=== PATIENT | female | born 2000 | race Hispanic/Latino ===

== ENCOUNTER 2019-05-19 13:44 | Emergency (ER) | payer MEDICARE ==
[~2019-05-19] VITALS: Ht 160 cm; Wt 103.4 kg
--- OUTSIDE RECORDS SUMMARY | 2019-05-19 13:47 | XMS REPORT ---
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 Allergies, Adverse Reactions, Alerts Allergy Name Allergy Type Status Severity Reaction(s) Onset Date Inactive Date Treating Clinician Comments No Known Allergies DA Active U 2017-12-10 00:00:00 Medications This patient has no known medications. Results Test Description Test Time Test Comments Text Results Atomic Results Result Comments - US PREG UT TRANSVAGINAL 2019-05-19 02:13:00 Name: SILVNIO GUTIERRES [facility] : 2000 Age/S: 18 / F [address] [facility] Unit #: [id number] Loc: [place] [address] Phys: Renay El MD Acct: [id number] Dis Date: Status: REG ER PHONE #: [phone] Exam Date: 05/19/2019 0159 FAX #: [phone] Reason: spotting EXAMS: CPT CODE: [id number] US PREG UT TRANSVAGINAL 68540 EXAM: - US PREG 1ST TRIMTR, - US PREG UT TRANSVAGINAL, - DUP AB/PEL/SC COMP HISTORY: Spotting. COMPARISON: May 03, 2019. TECHNIQUE: Transabdominal and endovaginal scans were performed. Spectral Doppler and color Doppler sonographic analysis of the adnexa was performed. FINDINGS: The uterus is normal size, measuring 8.8 x 5.7 x 6cm (length x AP x transverse dimensions). Single intrauterine gestation is present. heart tones are not present. IMPRESSION: heart tones are not identified during this exam. at 0213 Reported and signed by: Lance Muniz MD CC: Leeroy Thomas MD Technologist: Ronit Valle Trnscb Date/Time: 05/19/2019 (212) [email or web address] Orig Print D/T: S: 05/19/2019 (215) Probe: [id number] PAGE 1 Signed Report - DUP AB/PEL/SC COMP 2019-05-19 02:13:00 Name: SILVINO GUTIERRES [facility] : 2000 Age/S: 18 / F [address] [facility] Unit #: [id number] Loc: [place] [address] Phys: Renay El MD Acct: [id number] Dis Date: Status: REG ER PHONE #: [phone] Exam Date: 05/19/2019 0159 FAX #: [phone] Reason: VB AND EXAMS: CPT CODE: [id number] DUP AB/PEL/SC COMP 39353 EXAM: - US PREG 1ST TRIMTR, - US PREG UT TRANSVAGINAL, - DUP AB/PEL/SC COMP HISTORY: Spotting. COMPARISON: May 03, 2019. TECHNIQUE: Transabdominal and endovaginal scans were performed. Spectral Doppler and color Doppler sonographic analysis of the adnexa was performed. FINDINGS: The uterus is normal size, measuring 8.8 x 5.7 x 6cm (length x AP x transverse dimensions). Single intrauterine gestation is present. heart tones are not present. IMPRESSION: heart tones are not identified during this exam. at 0213 Reported and signed by: Lance Muniz MD CC: Leeroy Thomas MD Technologist: Ronit Valle Trnscb Date/Time: 05/19/2019 (0213) [email or web address] Orig Print D/T: S: 05/19/2019 (021) Probe: PAGE 1 Signed Report - US PREG 1ST TRIMTR 2019-05-19 02:13:00 Name: SILVINO GUTIERRES [facility] : 2000 Age/S: 18 / F [address] [facility] Unit #: [id number] Loc: [place] [address] Phys: Renay El MD Acct: [id number] Dis Date: Status: REG ER PHONE #: [phone] Exam Date: 05/19/2019 0159 FAX #: [phone] Reason: VB AND EXAMS: CPT CODE: [id number] US PREG 1ST TRIMTR 95365 EXAM: - US PREG 1ST TRIMTR, - US PREG UT TRANSVAGINAL, - DUP AB/PEL/SC COMP HISTORY: Spotting. COMPARISON: May 03, 2019. TECHNIQUE: Transabdominal and endovaginal scans were performed. Spectral Doppler and color Doppler sonographic analysis of the adnexa was performed. FINDINGS: The uterus is normal size, measuring 8.8 x 5.7 x 6cm (length x AP x transverse dimensions). Single intrauterine gestation is present. heart tones are not present. IMPRESSION: heart tones are not identified during this exam. at 0213 Reported and signed by: Lance Muniz MD CC: Leeroy Thomas MD Technologist: Ronit Valle Trnscb Date/Time: 05/19/2019 (212) [email or web address] Orig Print D/T: S: 05/19/2019 (021) Probe: PAGE 1 Signed Report BASIC METABOLIC PANEL 2019-05-19 01:06:00 SODIUM (test code=NA) 138 mmol/L 136-145 POTASSIUM (test code=K) 3.8 mmol/L 3.5-5.1 CHLORIDE (test code=CL) 102 mmol/L 101-109 CARBON DIOXIDE (test code=CO2) 25.8 mmol/L 21-32 ANION GAP (test code=GAP) 14 mmol/L 10-20 GLUCOSE (test code=GLU) 137 mg/dL 74-106 BLOOD UREA NITROGEN (test code=BUN) 7 mg/dL 3-21 GLOMERULAR FILTRATION RATE (test code=GFR) > 60 mL/min >=60 Estimated GFR by using Modified MDRD formula.Chronic kidney disease is defined as either kidney damageor GFR <60 mL/min/1.73 m2 for >3 months. CREATININE (test code=CREAT) 0.58 mg/dL 0.55-1.3 BUN/CREATININE RATIO (test code=BUN/CREA) 12.1 10-20 CALCIUM (test code=CA) 8.6 mg/dL 8.4-10.2 HCG SERUM [id number] 01:06:00* Test Item Value Reference Range Comments HCG SERUM BETA (test code=HCG) 98099.0 mIU/ml 0-5.0 INTERPRETATION:B-HCG LEVELS <6 SHOULD BE CONSIDERED "NEGATIVE."VALUES BETWEEN 6-25 MIU/ML NEED TO BE RETESTED WITHIN 48hrs. 0-1 WEEKS AFTER CONCEPTION 0-50 MIU/ML1-2 WEEKS AFTER CONCEPTION 40-300 MIU/ML2-3 WEEKS AFTER CONCEPTION 100-1,000 MIU/ML3-4 WEEKS AFTER CONCEPTION 500-6,000 MIU/ML1-2 MONTHS AFTER CONCEPTION 5,000-200,000 MIU/ML2-3 MONTHS AFTER CONCEPTION 10,000-100,000 MIU/ML2ND TRIMESTER 3,000-50,000 MIU/ML3RD TRIMESTER 1,000-50,000 MIU/ML BASIC METABOLIC [id number] 00:46:00* Test Item Value Reference Range Comments SODIUM (test code=NA) 138 mmol/L 136-145 POTASSIUM (test code=K) 3.8 mmol/L 3.5-5.1 CHLORIDE (test code=CL) 102 mmol/L 101-109 CARBON DIOXIDE (test code=CO2) 25.8 mmol/L 21-32 ANION GAP (test code=GAP) 14 mmol/L 10-20 GLUCOSE (test code=GLU) 137 mg/dL 74-106 BLOOD UREA NITROGEN (test code=BUN) 7 mg/dL 3-21 GLOMERULAR FILTRATION RATE (test code=GFR) > 60 mL/min >=60 Estimated GFR by using Modified MDRD formula.Chronic kidney disease is defined as either kidney damageor GFR <60 mL/min/1.73 m2 for >3 months. CREATININE (test code=CREAT) 0.58 mg/dL 0.55-1.3 BUN/CREATININE RATIO (test code=BUN/CREA) 12.1 10-20 CALCIUM (test code=CA) 8.6 mg/dL 8.4-10.2 HCG SERUM [id number] 00:46:00* Test Item Value Reference Range Comments HCG SERUM BETA (test code=HCG) mIU/mL <10 URINALYSIS [id number] 00:38:00* Test Item Value Reference Range Comments UA COLOR (test code=COLU) YELLOW YELLOW UA APPEARANCE (test code=APPU) CLEAR CLEAR UA GLUCOSE DIPSTICK (test code=DGLUU) norm mg/dL NEGATIVE UA BILIRUBIN DIPSTICK (test code=BILU) NEGATIVE mg/dL NEGATIVE UA KETONE DIPSTICK (test code=KETU) neg mg/dL NEGATIVE UA SPECIFIC GRAVITY (test code=SGU) 1.010 1.001-1.035 UA BLOOD DIPSTICK (test code=YUNI) neg Raghu/uL NEGATIVE UA PH DIPSTICK (test code=RYAN) 7.0 5.0-8.0 UA PROTEIN DIPSTICK (test code=PROU) neg mg/dL Neg-15 UA UROBILINIOGEN DIPSTICK (test code=URO) norm mg/dL 0.0-0.2 UA NITRITE DIPSTICK (test code=CINTIA) NEGATIVE NEGATIVE UA LEUKOCYTE ESTERASE DIPSTICK (test code=LEUU) neg uL NEGATIVE UA WBC (test code=WBCU) 0-5 per HPF 0-5 UA RBC (test code=RBCU) 0-3 per HPF 0-5 UA EPITHELIAL CELLS (test code=EPIU) Rare (0-1/hpf) per HPF Few UA BACTERIA (test code=BACU) TRACE per HPF NONE Urine Source? Clean CatchURINALYSIS [id number] 00:30:00* Test Item Value Reference Range Comments UA COLOR (test code=COLU) YELLOW YELLOW UA APPEARANCE (test code=APPU) CLEAR CLEAR UA GLUCOSE DIPSTICK (test code=DGLUU) norm mg/dL NEGATIVE UA BILIRUBIN DIPSTICK (test code=BILU) NEGATIVE mg/dL NEGATIVE UA KETONE DIPSTICK (test code=KETU) neg mg/dL NEGATIVE UA SPECIFIC GRAVITY (test code=SGU) 1.010 1.001-1.035 UA BLOOD DIPSTICK (test code=YUNI) neg Raghu/uL NEGATIVE UA PH DIPSTICK (test code=RYAN) 7.0 5.0-8.0 UA PROTEIN DIPSTICK (test code=PROU) neg mg/dL Neg-15 UA UROBILINIOGEN DIPSTICK (test code=URO) norm mg/dL 0.0-0.2 UA NITRITE DIPSTICK (test code=CINTIA) NEGATIVE NEGATIVE UA LEUKOCYTE ESTERASE DIPSTICK (test code=LEUU) neg uL NEGATIVE UA WBC (test code=WBCU) per HPF 0-5 UA RBC (test code=RBCU) per HPF 0-5 UA EPITHELIAL CELLS (test code=EPIU) per HPF Few UA BACTERIA (test code=BACU) per HPF NONE Urine Source? Clean CatchCBC W/AUTO [id number] 00:29:00* Test Item Value Reference Range Comments WHITE BLOOD CELL (test code=WBC) 11.6 K/mm3 4.5-12.5 RED BLOOD CELL (test code=RBC) 4.83 mill/mm3 3.7-5.2 HEMOGLOBIN (test code=HGB) 13.4 gram/dL 11.5-15.5 HEMATOCRIT (test code=HCT) 41.6 % 36.0-46.0 MEAN CELL VOLUME (test code=MCV) 86.1 fL 80-98 MEAN CELL HGB (test code=MCH) 27.7 picogram 27.0-33.0 MEAN CELL HGB CONCETRATION (test code=MCHC) 32.2 gram/dL 33.0-36.0 RED CELL DISTRIBUTION WIDTH (test code=RDW) 12.7 % 11.6-16.2 RED CELL DISTRIBUTION WIDTH SD (test code=RDW-SD) 40.4 fL 37.0-51.0 PLATELET COUNT (test code=PLT) 394 K/mm3 150-450 MEAN PLATELET VOLUME (test code=MPV) 10.1 fL 6.7-11.0 NEUTROPHIL % (test code=NT%) 53.9 % 39.0-69.0 LYMPHOCYTE % (test code=LY%) 35.8 % 25.0-55.0 MONOCYTE % (test code=MO%) 6.3 % 0.0-10.0 EOSINOPHIL % (test code=EO%) 3.2 % 0.0-5.0 BASOPHIL % (test code=BA%) 0.5 % 0.0-1.0 NEUTROPHIL # (test code=NT#) 6.26 K/mm3 1.8-7.7 LYMPHOCYTE # (test code=LY#) 4.16 K/mm3 1.0-5.0 MONOCYTE # (test code=MO#) 0.73 K/mm3 0-0.8 EOSINOPHIL # (test code=EO#) 0.37 K/mm3 0.0-0.5 BASOPHIL # (test code=BA#) 0.06 K/mm3 0.0-0.2 MANUAL DIFF REQUIRED (test code=MDIFF) NO URINALYSIS [id number] 22:58:00* Test Item Value Reference Range Comments UA COLOR (test code=COLU) YELLOW YELLOW UA APPEARANCE (test code=APPU) TURBID CLEAR UA GLUCOSE DIPSTICK (test code=DGLUU) NEGATIVE mg/dL NEGATIVE UA BILIRUBIN DIPSTICK (test code=BILU) NEGATIVE mg/dL NEGATIVE UA KETONE DIPSTICK (test code=KETU) NEGATIVE mg/dL NEGATIVE UA SPECIFIC GRAVITY (test code=SGU) 1.022 1.001-1.035 UA BLOOD DIPSTICK (test code=YUNI) 1.0 mg/dL (3+) mg/dL NEGATIVE UA PH DIPSTICK (test code=RYAN) 7.0 5.0-8.0 UA PROTEIN DIPSTICK (test code=PROU) 50 (1+) mg/dL NEGATIVE UA UROBILINIOGEN DIPSTICK (test code=URO) Normal mg/dL NEGATIVE UA NITRITE DIPSTICK (test code=CINTIA) NEGATIVE NEGATIVE UA LEUKOCYTE ESTERASE W REFLEX (test code=LEUUR) 25 Darion/uL (Trace) Darion/uL NEGATIVE UA WBC (test code=WBCU) 6-10 per HPF 0-5 UA RBC (test code=RBCU) 11-20 #/HPF 0-5 UA EPITHELIAL CELLS (test code=EPIU) MANY per HPF FEW UA BACTERIA (test code=BACU) FEW #/HPF NONE UA MUCUS (test code=MUCU) FEW #/LPF FEW UA AMORPHOUS SEDIMENT (test code=AMORU) FEW #/LPF NONE Urine Source? Clean CatchURINALYSIS [id number] 22:44:00* Test Item Value Reference Range Comments UA COLOR (test code=COLU) YELLOW YELLOW UA APPEARANCE (test code=APPU) TURBID CLEAR UA GLUCOSE DIPSTICK (test code=DGLUU) NEGATIVE mg/dL NEGATIVE UA BILIRUBIN DIPSTICK (test code=BILU) NEGATIVE mg/dL NEGATIVE UA KETONE DIPSTICK (test code=KETU) NEGATIVE mg/dL NEGATIVE UA SPECIFIC GRAVITY (test code=SGU) 1.022 1.001-1.035 UA BLOOD DIPSTICK (test code=YUNI) 1.0 mg/dL (3+) mg/dL NEGATIVE UA PH DIPSTICK (test code=RYAN) 7.0 5.0-8.0 UA PROTEIN DIPSTICK (test code=PROU) 50 (1+) mg/dL NEGATIVE UA UROBILINIOGEN DIPSTICK (test code=URO) Normal mg/dL NEGATIVE UA NITRITE DIPSTICK (test code=CINTIA) NEGATIVE NEGATIVE UA LEUKOCYTE ESTERASE W REFLEX (test code=LEUUR) 25 Darion/uL (Trace) Darion/uL NEGATIVE UA WBC (test code=WBCU) per HPF 0-5 UA RBC (test code=RBCU) per HPF 0-5 UA EPITHELIAL CELLS (test code=EPIU) per HPF Few UA BACTERIA (test code=BACU) per HPF NONE Urine Source? Clean Catch- US RETRO [id number] 22:12:00 Name: SILVINO GUTIERRES [facility] : 2000 Age/S: 18 / F [address] [facility] Unit #: [id number] Loc: [place] [address] Phys: White,Will naet D SOFTWARE APPLICATIONS DESIGNER Acct: [id number] Di s Date: Status: REG ER PHONE #: [phone] Exam Date: 05/03/20192108 FAX #: Reason: FLANK PAIN EXAMS: CPT CODE: [id number] US RETRO LTD 15412 HISTORY: Flank pain. COMPARISON: None available. Bilateral renal ultrasound: Both kidneys are free from hydronephrosis and calyceal stones. Normal echogenicity and texture. No perinephric collections. Right kidney measured 10.1 x 4.5 x 4.4 cm. Left kidney measured 11.5 x 6.4 x 4.8 cm. Unremarkable incompletely distended urinary bladder. No wall thickening or mural nodules. Ureteral jets are not documented. IMPRESSION: No hydronephrosis or calyceal stones. Normal echogenicity and texture. Unremarkable incompletely distended urinary bladder. Electronically Signed by Je Bowens on 12/2018 at 2212 Reported and signed by: Derian Quevedo CC: Dave Garcia MD; Leeroy Thomas MD; Lucio Gallegos NP Technologist: Vinita Valadez RDMS Trnscb Da te/Time: 05/03/2019 (2211) [email or web address] Orig Print D/T: S: 0 05/03/2019 (2214) Probe: PAGE 1 Signed Report - DUP AB/PEL/SC [id number] 22:05:00 Name: SILVINO GUTIERRES [facility] : 2000 Age/S: 18 / F [address] [facility] Unit #: [id number] Loc: [place] [address] Phys: Yosi Gallegos SOFTWARE APPLICATIONS DESIGNER Acct: [id number] Dis Date: Status: REG ER PHONE #: [phone] Exam Date: 05/03/20192141 FAX #: [phone] Reason: PELVIC PAIN EXAMS: CPT CODE: [id number] DUP AB/PEL/SC COMP 02579 HISTORY: Bleeding and pelvic pain. COMPARISON: No recent images available. Transabdominal and transvaginal (for better endometrial and ovarian evaluation) pelvic ultrasound with color and Doppler flow and grayscale imaging. Anteverted uterus measured 9.8 x 5.2 x 5 cm. Intrauterine gestational sac with embryonic pole and yolk sac. Cardiac activity documented at 177 beats minutes. Subchorionic hemorrhage posterior to the sac measured 1.2 cm. [place]-rump length of 1.9 cm and mean gestational sac size of 2.3 cm would equal 7 weeks 6 days +/- 1 week. HEIDY of December 14, 2019. Color and Doppler flow in right ovary with normal spectral waveform. Right ovary measured 2.3, 0.5 x 1.8 cm. Left ovary is not seen. No free fluid. IMPRESSION: IUP at 7 weeks 6 days +/- 1 week with average heart rate of 77 beats per minute. Subchorionic hemorrhage posterior to the sac measured 1.2 cm. HEIDY of December 14, 2019. Left ovary is not visible. Right ovary demonstrating color Doppler flow with normal spectral waveform. at 2205 Reported and signed by: Chuy Bowens M.D. CC: Dave Garcia MD; Leeroy Thomas MD; Yosi Gallegos NP Technologist: Vinita Valadez RDMS Trnnjb Date/Time: 05/03/2019 (2204) [email or web address] Orig Print D/T: S: 05/03/2019 (2207) Probe: PAGE 1 Signed Report - US PREG 1ST [id number] 22:05:00 Name: SILVINO GUTIERRES [facility] : 2000 Age/S: 18 / F [address] [facility] Unit #: [id number] Loc: [place] [address] Phys: Yosi Gallegos SOFTWARE APPLICATIONS DESIGNER Acct: [id number] Dis Date: Status: REG ER PHONE #: [phone] Exam Date: 05/03/20192141 FAX #: [phone] Reason: VAGINAL BLEEDING/PELVIC PAIN EXAMS: CPT CODE: [id number] US PREG 1ST TRIMTR 90655 HISTORY: Bleeding and pelvic pain. COMPARISON: No recent images available. Transabdominal and transvaginal (for better endometrial and ovarian evaluation) pelvic ultrasound with color and Doppler flow and grayscale imaging. Anteverted uterus measured 9.8 x 5.2 x 5 cm. Intrauterine gestational sac with embryonic pole and yolk sac. Cardiac activity documented at 177 beats minutes. Subchorionic hemorrhage posterior to the sac measured 1.2 cm. [place]-rump length of 1.9 cm and mean gestational sac size of 2.3 cm would equal 7 weeks 6 days +/- 1 week. HEIDY of December 14, 2019. Color and Doppler flow in right ovary with normal spectral waveform. Right ovary measured 2.3, 0.5 x 1.8 cm. Left ovary is not seen. No free fluid. IMPRESSION: IUP at 7 weeks 6 days +/- 1 week with average heart rate of 77 beats per minute. Subchorionic hemorrhage posterior to the sac measured 1.2 cm. HEIDY of December 14, 2019. Left ovary is not visible. Right ovary demonstrating color Doppler flow with normal spectral waveform. at 2205 Reported and signed by: Chuy Bowens M.D. CC: Dave Garcia MD; Leeroy Thomas MD; Yosi Gallegos NP Technologist: Vinita Valadez RDMS [facility] Date/Time: 05/03/2019 (2204) [email or web address] Orig Print D/T: S: 05/03/2019 (2207) Probe: PAGE 1 Signed Report - US PREG UT [id number] 22:05:00 Name: SILVINO GUTIERRES [facility] : 2000 Age/S: 18 / F [address] [facility] Unit #: [id number] Loc: [place] [address] Phys: Yosi Gallegos SOFTWARE APPLICATIONS DESIGNER Acct: [id number] Dis Date: Status: REG ER PHONE #: [phone] Exam Date: 05/03/20192141 FAX #: [phone] Reason: PELVIC PAIN EXAMS: CPT CODE: [id number] US PREG UT TRANSVAGINAL 51615 HISTORY: Bleeding and pelvic pain. COMPARISON: No recent images available. Transabdominal and transvaginal (for better endometrial and ovarian evaluation) pelvic ultrasound with color and Doppler flow and grayscale imaging. Anteverted uterus measured 9.8 x 5.2 x 5 cm. Intrauterine gestational sac with embryonic pole and yolk sac. Cardiac activity documented at 177 beats minutes. Subchorionic hemorrhage posterior to the sac measured 1.2 cm. [place]-rump length of 1.9 cm and mean gestational sac size of 2.3 cm would equal 7 weeks 6 days +/- 1 week. HEIDY of December 14, 2019. Color and Doppler flow in right ovary with normal spectral waveform. Right ovary measured 2.3, 0.5 x 1.8 cm. Left ovary is not seen. No free fluid. IMPRESSION: IUP at 7 weeks 6 days +/- 1 week with average heart rate of 77 beats per minute. Subchorionic hemorrhage posterior to the sac measured 1.2 cm. HEIDY of December 14, 2019. Left ovary is not visible. Right ovary demonstrating color Doppler flow with normal spectral waveform. at 2205 Reported and signed by: Chuy Bowens M.D. CC: Dave Garcia MD; Leeroy Thomas MD; Yosi Gallegos NP Technologist: Vinita Valadez RDMS Trnscb Date/Time: 05/03/2019 (2204) [email or web address] Orig Print D/T: S: 05/03/2019 (2207) Probe: [id number] PAGE 1 Signed Report BASIC METABOLIC [id number] 21:55:00* Test Item Value Reference Range Comments SODIUM (test code=NA) 139 mmol/L 136-145 POTASSIUM (test code=K) 3.8 mmol/L 3.5-5.1 CHLORIDE (test code=CL) 106.0 mmol/L 98-107 CARBON DIOXIDE (test code=CO2) 24.0 mmol/L 21-32 ANION GAP (test code=GAP) 12.8 10-20 GLUCOSE (test code=GLU) 84 mg/dL 74-106 BLOOD UREA NITROGEN (test code=BUN) 7 mg/dL 7-18 GLOMERULAR FILTRATION RATE (test code=GFR) > 60 mL/min >=60 Estimated GFR by using Modified MDRD formula.Chronic kidney disease is defined as either kidney damageor GFR <60 mL/min/1.73 m2 for >3 months. CREATININE (test code=CREAT) 0.60 mg/dL 0.55-1.02 Note change in reference range due to change in reagent. BUN/CREATININE RATIO (test code=BUN/CREA) 11.9 10-20 CALCIUM (test code=CA) 9.5 mg/dL 8.5-10.1 HCG SERUM [id number] 21:55:00* Test Item Value Reference Range Comments HCG SERUM BETA (test code=HCG) 65898.0 mIU/mL 0-3 Interfering substances present in the serum of somepatients may cause a false-positive result in this assay.Questionable elevations in serum hCG should be confirmedwith a urine hCG. Suspected Trophoblastic Neoplasms shouldnot be diagnosed based on serun hCG/beta hCG alone. Theymust be confirmed by clinical history and tissue diagnosis.INTERPRETATION:B-HCG LEVELS <5 SHOULD BE CONSIDERED "NEGATIVE." *WHEN BODERLINE RESULTS ARE ENCOUNTERED,PATIENT SAMPLESSHOULD BE REDRAWN 48 HOURS. 0-1 WEEKS AFTER CONCEPTION 5-50 MIU/ML1-2 WEEKS AFTER CONCEPTION 50-500 MIU/ML2-3 WEEKS AFTER CONCEPTION 100 -5,000 MIU/ML3-4 WEEKS AFTER CONCEPTION 500-10,000 MIU/ML4-5 WEEKS AFTER CONCEPTION 1000 -50,000 MIU/ML5-6 WEEKS AFTER CONCEPTION 10,000-100,000 MIU/ML6-8 WEEKS AFTER CONCEPTION 15,000- 200,000 MIU/ML2-3 MONTHS AFTER CONCEPTION 10,000-100,000 MIU/ML BASIC METABOLIC [id number] 21:31:00* Test Item Value Reference Range Comments SODIUM (test code=NA) 139 mmol/L 136-145 POTASSIUM (test code=K) 3.8 mmol/L 3.5-5.1 CHLORIDE (test code=CL) 106.0 mmol/L 98-107 CARBON DIOXIDE (test code=CO2) mmol/L 21-32 ANION GAP (test code=GAP) 10-20 GLUCOSE (test code=GLU) mg/dL 74-106 BLOOD UREA NITROGEN (test code=BUN) mg/dL 7-18 GLOMERULAR FILTRATION RATE (test code=GFR) mL/min >=60 CREATININE (test code=CREAT) mg/dL 0.55-1.02 BUN/CREATININE RATIO (test code=BUN/CREA) 10-20 CALCIUM (test code=CA) mg/dL 8.5-10.1 HCG SERUM [id number] 21:31:00* Test Item Value Reference Range Comments HCG SERUM BETA (test code=HCG) mIU/mL 0-3 CBC W/O [id number] 21:14:00* Test Item Value Reference Range Comments WHITE BLOOD CELL (test code=WBC) 10.8 K/mm3 4.5-12.5 RED BLOOD CELL (test code=RBC) 4.82 mill/mm3 3.7-5.2 HEMOGLOBIN (test code=HGB) 13.6 gram/dL 11.5-15.5 HEMATOCRIT (test code=HCT) 42.3 % 36.0-46.0 MEAN CELL VOLUME (test code=MCV) 87.8 fL 80-98 MEAN CELL HGB (test code=MCH) 28.2 picogram 27.0-33.0 MEAN CELL HGB CONCETRATION (test code=MCHC) 32.2 gram/dL 33.0-36.0 RED CELL DISTRIBUTION WIDTH (test code=RDW) 12.8 % 11.6-16.2 PLATELET COUNT (test code=PLT) 418 K/mm3 150-450 MEAN PLATELET VOLUME (test code=MPV) 9.9 fL 6.7-11.0
--- OUTSIDE RECORDS SUMMARY | 2019-05-19 13:47 | XMS REPORT | Summary of Care ---
Author Author [facility] - [facility] Organization [facility] - [facility] Address Unknown Phone Unavailable Care Team Providers Care Heel Emery Buffer Name Role Phone PCP Unavailable Encounter Details Care Team Description Date Type Department Doctor Unassigned, [place] [address] [place] [id number] 05/10/2019 Orders Only [address] [address] Allergies No Known Allergiesdocumented as of this encounter (statuses as of 05/10/2019) Medications End Date Status Medication Sig Dispensed Refills Start Date Active Take 1 Each 30 capsule 6 no.78-iron-FA#1-dha by mouth 6 (PRENATE DHA, FERR ASP daily. GLYCIN,) 18 mg iron-1 mg -300 mg Cap Active azithromycin (ZITHROMAX) Take 1 tablet 2 tablet 0 500 mg tabletIndications: by mouth 6 Chlamydia trachomatis daily. infection of lower genitourinary sites documented as of this encounter (statuses as of 05/10/2019) Active Problems Problem Noted Date Chlamydia trachomatis infection of lower genitourinary sites 08/18/2016 High-risk , unspecified trimester [O09.90] 08/17/2016 High risk teen in second trimester 08/17/2016 Overview: Mervin submitted 08/18/2016, # [id number] documented as of this encounter (statuses as of 05/10/2019) Immunizations Name Administration Dates Next Due Influenza Virus Vaccine 08/17/2016 Quad IM 3+ YRS documented as of this encounter Social History Date Tobacco Use Types Packs/Day Years Used Never Smoker Smokeless Tobacco: Never Used Drinks/Week oz/Week Comments Alcohol Use No Sex Assigned at Date Recorded Not on file Industry Job Start Date Occupation Not on file Not on file Not on file Travel End Travel History Travel Start No recent travel history available. documented as of this encounter Last Filed Vital Signs Not on filedocumented in this encounter Plan of Treatment Care Team Description Date Type Specialty 2, Evin Room 05/10/2019 Office Visit [facility] Renay Young, CNM [id number] [place] [address] 05/10/2019 Initial [facility] Visit Health Maintenance Due Date Last Done Comments MENINGOCOCCAL B VACCINES 2009 (1 of 2 - Risk Bexsero 2-dose series) HPV VACCINES (1 - Female 2014 3-dose series) CHLAMYDIA SCREENING 08/17/2017 08/17/2016 DTaP,Tdap,and Td Vaccines 2018 (1 - Tdap) INFLUENZA VACCINE (#1) 2019 08/17/2016 MENINGOCOCCAL VACCINE Aged Out No longer eligible based on patient's age to complete this topic PNEUMOCOCCAL 0-64 YEARS Aged Out No longer eligible based COMBINED SERIES on patient's age to complete this topic documented as of this encounter Procedures Comments Procedure Name Priority Date/Time Associated Diagnosis ASSIGNMENT OF BENEFITS Routine 05/10/2019 1:32 PM CDT documented in this encounter Results Not on filedocumented in this encounter Insurance Type Payer Benefit Subscriber ID Effective Phone Address Plan / Dates Group CHIP Joselyn CHIP [place] [id number] 2015-P [address] [employer] resent [phone] [facility] [address] [place], [place] [address] JOSELYN [phone] [employer] documented as of this encounter
[2019-05-19 14:32] LABS: BILIRUBIN,URINE NEGATIVE (NEGATIVE); CLARITY,URINE CLEAR (CLEAR); COLOR,URINE YELLOW (YELLOW); KETONES,URINE NEGATIVE (NEGATIVE); LEUKOCYTE ESTERASE ,URINE NEGATIVE (NEGATIVE); NITRITE,URINE NEGATIVE (NEGATIVE); PROTEIN,URINE DIPSTICK NEGATIVE (NEGATIVE); URINE UROBILINOGEN 0.2 mg/dL (0.2 - 1)
[2019-05-19 14:33] LABS: PREGNANCY TEST, URINE POSITIVE (NEGATIVE)
[2019-05-19 14:48] LABS: BACTERIA,URINE FEW /HPF; EPITHELIAL CELLS,URINE RARE /LPF; RBC,URINE 0-5 /HPF (0-5); WBC,URINE (MAN) 0-5 /HPF (0-5)
[2019-05-19 14:58] LABS: BASOPHILS # (AUTO) 0.1 (0.0-0.1); BASOPHILS % 0.5 % (0.0-1.0); EOSINOPHILS # (AUTO) 0.2 (0.0-0.4); EOSINOPHILS % 1.6 % (0.0-6.0); HEMATOCRIT 41.7 % (34.2-44.1); HEMOGLOBIN 13.7 g/dL (12.0-16.0); LYMPHOCYTES # (AUTO) 2.7 (1.0-3.2); LYMPHOCYTES % 25.6 % (18.0-39.1); MEAN CORPUSCULAR HEMOGLOBIN 28.2 pg (28-32); MEAN CORPUSCULAR HGB CONC 32.9 g/dL (31-35); MEAN CORPUSCULAR VOLUME 85.8 fL (81-99); MONOCYTES # (AUTO) 0.5 (0.2-0.8); NEUTROPHILS % 66.8 % (38.7-80.0); PLATELET COUNT 398 x10e3/uL (140-360); RED BLOOD COUNT 4.86 x10e6/uL (3.6-5.1); RED CELL DISTRIBUTION WIDTH 12.9 % (11.7-14.4)
--- NOTE | 2019-05-19 14:58 | NUR ---
RUG SCRATCHER CALLED PER GERA (RADIOLOGY)
--- NOTE | 2019-05-19 16:57 | Diagnostic Imaging Report ---
EXAMINATION: Transvaginal ultrasound. CLINICAL INDICATION: First trimester vaginal bleeding 18-year-old , last menstrual period March 17. At the mid gestational age 9 weeks, 0 days by dates COMPARISON: None available DISCUSSION: Transverse and sagittal transvaginal images were obtained of the pelvis with supplemental transabdominal images. The uterus measures 8 x 6.5 x 8.1 cm. Within the endometrium is a gestational sac of mean diameter 2.88 cm, corresponding to an estimated gestational age 8 weeks, 1 days. The gestational sac contains a pole of crown-rump length 2.43 cm, corresponding to an estimated gestational age of 9 weeks, 2 days. A small amount of subchorionic hemorrhage is seen along the right superolateral aspect of the gestational sac. No cardiac activity is identified. The ovaries are normal in size and echogenicity. The right ovary measures 3.7 x 2 x 1.9 centimeters. The left ovary measures 3.6 x 2.5 x 2.3 centimeters. No free fluid or pelvic masses are seen. IMPRESSION: Sonographic findings compatible with a nonviable intrauterine ( pole crown-rump length greater than 7 mm without cardiac activity). Reference: Diagnostic criteria for nonviable early in the first trimester. [place] Journal [employer] Medicine 2013. Signed by: Dr. Cedric Otto M.D. on 05/19/2019 4:54 PM
--- NOTE | 2019-05-19 17:15 | NUR ---
PATIENT BROUGHT INTO TRIAGE FOR RE EVALUATION. DR. ECHOLS UPDATED PATIENT ON RESULTS, AND TOLD TO FOLLOW UP WITH OBGYN
== END 2019-05-19 17:24 | disposition home or self-care (01) ==
LOC: ER 13:44
DX: O20.9 Hemorrhage in early pregnancy, unspecified (principal); O20.0 Threatened abortion; R10.31 Right lower quadrant pain
CPT/HCPCS: 36415; 76817; 81001; 81025; 84702; 85025; 86900; 99284

== ENCOUNTER 2021-03-01 00:13 | Emergency (ER) | payer OTHER ==
[~2021-03-01] VITALS: Ht 160 cm; Wt 108.4 kg
[2021-03-01] MEDS ORDERED: ONDANSETRON HCL 4 MG ORAL DISINTEGRATING TAB PO STA (00:31)
[2021-03-01] MEDS ORDERED: KETOROLAC TROMETHAMINE 60 MG/2 ML VIAL IM ONE (00:45)
[2021-03-01] MEDS ORDERED: ONDANSETRON HCL 4 MG ORAL DISINTEGRATING TAB ONE (00:58)
[2021-03-01] MEDS ORDERED: KETOROLAC TROMETHAMINE 60 MG/2 ML VIAL ONE (00:58)
[2021-03-01] MEDS ORDERED: CIPRO500 MG PO (01:06)
[2021-03-01] MEDS ORDERED: PYRIDIUM100 MG PO (01:06)
[2021-03-01 01:20] VITALS: BP 138/87
== END 2021-03-01 01:19 | disposition home or self-care (01) ==
LOC: FSED 00:33
DX: N39.0 Urinary tract infection, site not specified (principal)
CPT/HCPCS: 74176; 81003; 81025; 96372; 99283; J1885; Q0162